=== PATIENT | female | born 1990 | race Hispanic/Latino ===

== ENCOUNTER 2016-11-17 05:28 | Emergency (ER) | payer SELFPAY ==
[~2016-11-17] VITALS: Ht 144.8 cm; Wt 53.7 kg
[~2016-11-17 05:28] MED LIST: ADULT GLYCERIN1 EACH PR; CIPROFLOXACIN500 M1 PO; DICLOXACILLIN500 MG PO; DICYCLOMINE HCL20 MG PO; ENDOCET 5-3251 EACH PO; ERGOCALCIF50000 UNIT PO; FERROUS SULFAT325 MG PO; IBUPROFEN800 MG PO; MACA500 MG PO; MOTRIN600 MG PO; PRENATAL 19 CH1 EAC1 PO; PRENATAL TABLE1 EAC3 PO; TYLENOL REGULA325 MG PO; ZOFRAN ODT4 MG PO
[2016-11-17 06:05] LABS: HEMATOCRIT 30.9 % (36.0-46.0); MCH 22.8 PG (29.0-34.0); MCHC 29.8 G/DL (30.0-36.0); MCV 76.5 FL (83-99); MEAN PLAT.VOLUME 9.6 uM^3 (9.5-12.4); PLATELET COUNT 243 K/uL (156-360); RBC DIS.WIDTH-CV 15.5 % (11.8-14.6); RBC DIS.WIDTH-SD 43.3 % (39-53); RED BLOOD COUNT 4.04 M/uL (3.80-5.20); WHITE BLOOD COUNT 6.6 K/uL (4.1-10.2)
[2016-11-17 06:19] LABS: CHLORIDE 108 mEq/L (99-109); POTASSIUM 3.9 mEq/L (3.7-5.4); SODIUM 142 mEq/L (136-147)
[2016-11-17 06:21] LABS: GLUCOSE 105 mg/dL (70-99)
[2016-11-17 06:22] LABS: ANION GAP 8 MEQ/L (2-14)
[2016-11-17 06:23] LABS: TOTAL BILIRUBIN 0.1 mg/dL (0.0-1.0)
[2016-11-17 06:24] LABS: ALKALINE PHOSPHATASE 79 IU/L (3-129)
[2016-11-17 06:25] LABS: GFR ESTIMATE (CALCULATED) > 59 mL/min/
[2016-11-17 06:26] LABS: UREA NITROGEN (BUN) 18 mg/dL (9-23)
[2016-11-17 06:33] LABS: QUANTITATIVE HCG < 4.0 MIU/ML
[2016-11-17 06:53] LABS: LIPASE 25 U/L (1.0-51.0)
[2016-11-17 08:46] LABS: ADD MIUA? YES; BILIRUBIN NEGATIVE; BLOOD NEGATIVE; COLOR YELLOW ((YELLOW)); GLUCOSE (STRIP) NEGATIVE; KETONES NEGATIVE; LEUKOCYTES NEGATIVE; NITRITE NEGATIVE; PROTEIN (STRIP) NEGATIVE; SPECIFIC GRAVITY 1.015 (1.000-1.030); UROBILINOGEN 0.2 MG/DL (0.2-1.0)
[2016-11-17 09:02] LABS: BACTERIA RARE /HPF; EPITHELIAL CELLS RARE /HPF; MUCUS TRACE /LPF; RED BLOOD CELLS 0-5 /HPF (0-5); UCUL ADDED? NO; WHITE BLOOD CELLS NONE SEEN /HPF (0-5)
[2016-11-17] MEDS ORDERED: NORCO 5/3251 TABLET PO (09:49)
[2016-11-17] MEDS ORDERED: ZOFRAN ODT4 MG PO (09:49)
[2016-11-17 10:25] VITALS: BP 96/76
== END 2016-11-17 10:26 | disposition home or self-care (01) ==
LOC: EME 05:28
DX: K80.20 Calculus of gallbladder without cholecystitis without obstruction (principal); K82.4 Cholesterolosis of gallbladder; D50.9 Iron deficiency anemia, unspecified
CPT/HCPCS: 76705; 80053; 81003; 83690; 84702; 85027